=== PATIENT | male | born 2000 | race Caucasian/White ===

== ENCOUNTER 2023-06-12 21:21 | Emergency (ER) | payer OTHER ==
[2023-06-12] MEDS ORDERED: TORADOL IV STA (21:29)
[2023-06-12 21:42] VITALS: BP 126/56; PULSE 92; RESP 20; TEMP 99.4; O2SAT 95
[2023-06-12] MEDS ORDERED: TORADOL ONE (21:42)
[2023-06-12 21:43] LABS: BASOPHIL % 0.2 % (0.0-0.2); LYMPHOCYTES # 1.77 10^3/uL1 (1.2-5.2); LYMPHOCYTES % 12.4 % (24.0-44.0); MEAN CORP HGB 30.8 pg (26-34); MONOCYTES # 1.2 10^3/uL (0.0-0.4); MONOCYTES % 8.6 % (5.0-12.0); NEUTROPHIL # 11.1 10^3/uL (1.8-8.0); NEUTROPHILS % 78.1 % (41.0-85.0); PLATELET COUNT 283 10^3/uL (150-400); RED CELL DISTRIBUTION WIDTH 11.7 % (11.5-14.5)
[2023-06-12 21:59] LABS: CARBON DIOXIDE 25.2 mmol/L (20.0-32)
[2023-06-12] MEDS ORDERED: NS 1000ML 1,000 ML STA (22:04)
[2023-06-12] MEDS ORDERED: NS 1000ML 1,000 ML ONE (22:05)
[2023-06-12 22:30] VITALS: BP 128/59; PULSE 63; RESP 16; O2SAT 99
--- NOTE | 2023-06-12 22:48 | DIREP ---
PROCEDURE:CT MAXILLOFACIAL W/CONTRAST COMPARISON:None. INDICATIONS:swelling/pain - r/o abscess right face TECHNIQUE:Axial CT images were created with intravenous contrast. Sagittal and coronal reformatted images are provided. FINDINGS: ORBITS:The globes are symmetric in size and contour. . No extraocular muscle entrapment is identified. No orbital wall fracture is identified. FACIAL BONES:No fracture. NASAL BONES :No fracture MANDIBLE:No fracture. SINUSES:There is complete opacification of the left maxillary and left anterior ethmoid sinuses with partial opacification of the left frontal sinus compatible with ostiomeatal unit pattern obstruction. Mild paranasal sinus mucosal thickening elsewhere. There is a mucous retention cyst and fluid levels in the right maxillary sinus. SOFT TISSUES:There is moderate subcutaneous stranding in the right facial soft tissues superficial to the through freight engineer space and parotid space. There is mild enlargement of the right through freight engineer muscle, likely reactive. The right parotid gland is mildly enlarged and asymmetrically enhancing. The parotid duct is normal. Normal left parotid gland and submandibular glands. Multiple enlarged bilateral lymph nodes measure up to 3.8 cm in long axis (craniocaudal) in the right cervical level 2 region. There also enlarged lymph nodes in the left neck measuring up to 3.6 cm in the cervical level 2 region. CONCLUSION: 1. Mild enlargement and asymmetric enhancement of the right parotid gland is suspicious for parotiditis. No fluid collections to suggest abscess. 2. Moderate subcutaneous stranding in the right face is likely reactive to the underlying parotiditis but could also represent cellulitis. 3. Multiple enlarged cervical lymph nodes are likely reactive. Clinical follow-up is recommended after treatment. 4. Opacification of the left maxillary, anterior ethmoid, and frontal sinuses is likely secondary to ostiomeatal unit and middle meatus obstruction with sinusitis. 5. Fluid layering in the right maxillary sinus may represent acute sinusitis in the appropriate clinical setting. Dictated by: Jacob Ramos M.D. on 06/12/2023 at 10:39 PM
[2023-06-12] MEDS ORDERED: CLEOCIN PO STA (22:58)
[2023-06-12 23:00] VITALS: BP 117/59; PULSE 61; RESP 18; O2SAT 96
--- NOTE | 2023-06-12 23:00 | ER.PDOC ---
General Chief Complaint: Requesting Medical Care Stated Complaint: R SWOLLEN JAW,FEVER,NAUSEA TRAVEL OUT OF US: No Time seen by MD: 21:30 Source: patient Exam Limitations: no limitations History of Present Illness Initial Comments Patient is a 22-year-old male with no reported past medical history who comes in with right-sided facial swelling and erythema this been going on for the past 2 to 3 days. Patient states over the past 2 3 days he has had erythema and swelling to the right side states that the sore nature pain associated with it and it is nonradiating made worse with palpation better with rest. He he states he has associated symptoms of feeling feverish she denies any other symptoms or concerns other than nausea. Past Medical History Medical History: no pertinent history Surgical History: no surgical history Family History Significant Family History: no pertinent family hx Social History Smoking: non-smoker Alcohol Use: none Drug Use: none Reviewed Nursing Reviewed: Vital Signs, Abn. Noted, Nursing Assessment Review of Systems Constitutional: fever EENTM: other (face swelling) Respiratory: no symptoms reported Cardiovascular: no symptoms reported Gastrointestinal: no symptoms reported Genitourinary: no symptoms reported Musculoskeletal: no symptoms reported Skin: change in color Psychiatric/Neurological: no symptoms reported Hematologic/Lymphatic: no symptoms reported Immunological/Allergic: no symptoms reported Physical Exam General Appearance: No Apparent Distress EENT: eyes nml inspection Neck: Non-Tender, Supple Respiratory: chest non-tender, lungs clear CVS: reg rate & rhythm, no murmur Gastrointestinal: Normal Bowel Sounds, Non Tender, Soft Neurologic/Psychiatric: No Motor/Sensory Deficits Skin: Other (Right-sided face has about a 6 cm area around the parotid glandThat is erythematic with cellulitis and swelling) Lymphatic: Other (Right-sided reactive lymph node) Results/Orders Results/Orders Orders - TRAE ANGEL MD Cbc With Auto Diff (06/12/23 21:29) Comprehensive Metabolic Panel (06/12/23 21:29) Saline Lock (06/12/23 21:29) Ct Facial Bones With Contrast (06/12/23 21:29) Ketorolac Tromethamine (Toradol) (06/12/23 21:29) Ketorolac Tromethamine (Toradol) (06/12/23 21:42) 0.9 % Sodium Chloride (Ns 1000ml) (06/12/23 22:04) 0.9 % Sodium Chloride (Ns 1000ml) (06/12/23 22:05) Vital Signs Date Time Temp Pulse Resp B/P (MAP) Pulse Ox O2 Delivery O2 Flow Rate FiO2 06/12/23 21:42 99.4 92 20 95 06/12/23 21:42 99.4 92 20 126/56 (79) 95 Room Air* 0 21 06/12/23 21:42 99.4 92 20 Administered Medications Medications (Trade) Dose Ordered Sig/Case Route PRN Reason Start Time Stop Time Status Last Admin Dose Admin Ketorolac Tromethamine (Toradol) 15 mg OT STAT IV 06/12/23 21:29 06/12/23 21:32 DC 06/12/23 21:54 15 MG Sodium Chloride 1,000 ml @ 0 mls/hr Q0M STAT IV 06/12/23 22:04 06/12/23 22:05 DC 06/12/23 22:09 1,200 MLS/HR Laboratory Tests Test 06/12/23 21:35 White Blood Count 14.2 10^3/uL (4.5-12.5) H Red Blood Count 4.64 10^6/uL (4.50-5.90) Hemoglobin 14.3 g/dL (13.2-15.6) Hematocrit 40.4 % (37.0-53.0) Mean Corpuscular Volume 87.1 fL (78-100) Mean Corpuscular Hemoglobin 30.8 pg (26-34) Mean Corpuscular Hemoglobin Concent 35.4 g/dL (33-36.5) Red Cell Distribution Width 11.7 % (11.5-14.5) Platelet Count 283 10^3/uL (150-400) Mean Platelet Volume 8.4 fL (7.8-11.0) Neutrophils (%) (Auto) 78.1 % (41.0-85.0) Lymphocytes (%) (Auto) 12.4 % (24.0-44.0) L Monocytes (%) (Auto) 8.6 % (5.0-12.0) Neutrophils # (Auto) 11.1 10^3/uL (1.8-8.0) H Lymphocytes # (Auto) 1.77 10^3/uL1 (1.2-5.2) Monocytes # (Auto) 1.2 10^3/uL (0.0-0.4) H Absolute Immature Granulocyte (auto 0.10 10^3 u/L (0-2) Absolute Eosinophils (auto) 0.0 10^3/uL (0.0-0.2) Immature Granulocytes % 0.70 % (0.00-0.50) H Eosinophils % 0.0 % (0.0-5.0) Basophils % 0.2 % (0.0-0.2) Basophils # 0.0 10^3/uL (0.0-0.1) Sodium Level 133 mmol/L (132-145) Potassium Level 3.5 mmol/L (3.6-5.2) L Chloride Level 97.0 mmol/L (96-109) Carbon Dioxide Level 25.2 mmol/L (20.0-32) Anion Gap 14.3 Blood Urea Nitrogen 14 mg/dL (7-18) Creatinine 1.63 mg/dL (0.59-1.40) H Estimated GFR () 65.6 (>/=60) Est GFR (CKD-EPI)(Non-Afr Ecu[place]orean) 54.2 (>/=60) BUN/Creatinine Ratio 8.0 (10.0-20.0) L Glucose Level 135 mg/dL (74-106) H Calcium Level 9.0 mg/dL (8.4-10.5) Total Bilirubin 0.6 mg/dL (0.2-1.0) Aspartate Amino Transferase (AST) 17 U/L (0-35) Alanine Aminotransferase (ALT) 7 U/L (12-78) L Alkaline Phosphatase 88 U/L (50-136) Total Protein 8.3 g/dL (6.4-8.2) H Albumin 3.8 g/dL (3.4-5.0) Globulin 4.5 Albumin/Globulin Ratio 0.844 Progress Progress Patient here with facial swelling need to rule out abscess will obtain a CT scan as well as obtain labs and give ketorolac continue to monitor. My interpretation of patient's labs is as follows looking at the chemistry patient is dehydrated will give fluids repeat CBC mildly elevated white count will give patient CT scan he does have swelling that would indicate cellulitis and parotitis and no abscess per my depend interpretation radiology later agreed. [id number] with patient all his findings he is feeling better will discharge with clindamycin and give clindamycin here. He voiced understanding of when to follow-up and when to return to the ER. ER DEPART Departure Time of Disposition: 22:59 Disposition: 01 HOME / SELF CARE / HOMELESS Impression: Primary Impression: Facial cellulitis Additional Impressions: Parotiditis Dehydration Condition: Stable Patient Instructions: Cellulitis, Dehydration, Adult, Parotitis Referrals: PCP,UNKNOWN (PCP) PRIMARY CARE PROVIDER Additional Instructions: Follow-up with your primary care provider over the next week. If you have any new persistent or worsening symptoms or concerns seek medical attention. Please take all medications as prescribed. Duration or Time Spent with Pa: 45 Problem Qualifiers TRAE ANGEL MD Jun 12, 2023 23:00
== END 2023-06-12 23:10 | disposition home or self-care (01) ==
LOC: ER 21:21
DX: L03.211 Cellulitis of face (principal); K11.20 Sialoadenitis, unspecified; E86.0 Dehydration
CPT/HCPCS: 99285; 96374; 70487; 80053; 85025; 36415; J7030; J1885; Q9965